=== PATIENT | male | born 1965 | race Caucasian/White ===

== ENCOUNTER 2016-12-27 07:48 | Day surgery (SDC) | payer OTHER ==
[2016-12-24 13:04] VITALS: BMI 31.1
[2016-12-27] MEDS ORDERED: PROPOFOL 20 ML ONE ×2 (07:56)
[2016-12-27 09:46] VITALS: BP 110/68; PULSE 85; TEMP 98.2
== END 2016-12-27 09:47 | disposition home or self-care (01) ==
LOC: FASU-ENDO 07:48
PROVIDERS: ATTEND Internal Medicine Gastroenterology
PROC: 0DJD8ZZ Inspection of Lower Intestinal Tract, Via Natural or Artificial Opening Endoscopic (ICD-10-PCS; principal; 2016-12-27 08:49)
DX: Z12.11 Encounter for screening for malignant neoplasm of colon (principal)